=== PATIENT | male | born 1960 | race Caucasian/White ===

== ENCOUNTER 2023-08-20 09:49 | Emergency (ER) | payer OTHER ==
[2023-08-20] MEDS ORDERED: ONDANSETRON 4 MG/2 ML VIAL ONE (10:27)
[2023-08-20] MEDS: SODIUM CHLORIDE 0.9% 500 ML INFUS.BAG IV ONE ×3 (10:35→13:50)
[2023-08-20] MEDS: ONDANSETRON 4 MG/2 ML VIAL IVPUSH ONE (10:36)
[2023-08-20 11:06] VITALS: BP 108/67; PULSE 70; RESP 16; TEMP 98.2; BMI 23.7
[2023-08-20 11:07] LABS: HEMOGLOBIN 15.2 G/dL (11.7-16.9); MCH 31.2 pg (25.7-33.7); MCHC 33.7 g/dl (32.0-35.9); MEAN CELL VOLUME 92.8 fl (80-96); MEAN PLT VOLUME 7.5 fl (7.5-11.1); PLATELET COUNT 325.1 10^3/uL (134-434); RBC 4.85 10^6/uL (4.00-5.60); RDW 13.9 % (11.9-15.9); WHITE BLOOD COUNT 13.5 10^3/uL (4.0-10.8)
[2023-08-20 11:21] LABS: ALBUMIN 5.3 g/dl (3.4-5.0); ALK PHOS 66 U/L (45-117); ANION GAP 8 mmol/L (4-13); BILIRUBIN,TOTAL 1.1 mg/dl (0.2-1); CALCIUM 10.8 mg/dl (8.5-10.1); CHLORIDE 100 mmol/L (98-107); CO2 29 mmol/L (21-32); CREATININE 1.7 mg/dl (0.6-1.3); GLUCOSE,RANDOM 117 mg/dl (74-106); POTASSIUM 4.6 mmol/L (3.5-5.1); SGOT/AST 59 U/L (15-37); SGPT/ALT 52 U/L (7-52); SODIUM 137 mmol/L (136-145); TOT PROT 8.7 g/dl (6.4-8.2)
[2023-08-20 12:57] LABS: PLATELET ESTIMATE ADEQUATE
[2023-08-20 12:58] LABS: TOXIC GRANULATION 1+
[2023-08-20 13:37] LABS: ALBUMIN 4.3 g/dl (3.4-5.0); BILIRUBIN,TOTAL 0.8 mg/dl (0.2-1); CREATININE 1.4 mg/dl (0.6-1.3); POTASSIUM 4.6 mmol/L (3.5-5.1); TOT PROT 6.9 g/dl (6.4-8.2)
== END 2023-08-20 14:54 | disposition home or self-care (01) ==
LOC: FER 09:49
PROC: 3E033NZ Introduction of Analgesics, Hypnotics, Sedatives into Peripheral Vein, Percutaneous Approach (ICD-10-PCS; principal; 2023-08-20)
DX: R42 Dizziness and giddiness (principal); R11.0 Nausea; M79.10 Myalgia, unspecified site; I95.9 Hypotension, unspecified; M62.82 Rhabdomyolysis; K52.9 Noninfective gastroenteritis and colitis, unspecified; Z20.822 Contact with and (suspected) exposure to COVID-19
CPT/HCPCS: 0241U-QW; 36415; 80053; 82550; 82553; 83605; 83690; 84484; 85027; 86140; 93005; 99284-25